=== PATIENT | female | born 1985 | race Caucasian/White ===

== ENCOUNTER 2017-06-05 05:39 | Inpatient (IN) | payer OTHER ==
[~2017-06-05] VITALS: Ht 172.7 cm; Wt 81.8 kg
[2017-06-05] MEDS ORDERED: OXYTOCIN 30U/ 0.9% NaCL 500ML 500 ML IV SCH (05:40)
[2017-06-05] MEDS ORDERED: LACTATED RINGERS 1,000 ML IV SCH ×3 (05:40→07:36)
[2017-06-05 05:54] VITALS: BP 112/73
[2017-06-05] MEDS ORDERED: METOCLOPRAMIDE 5 MG/ML, 2ML IV ONE (06:00)
[2017-06-05] MEDS ORDERED: LACTATED RINGERS 1,000 ML IVBOLUS ONE (06:00)
[2017-06-05] MEDS ORDERED: SODIUM CITRATE/CITRIC ACID 30 ML UDC PO ONE (06:00)
[2017-06-05] MEDS ORDERED: METOCLOPRAMIDE 5 MG/ML, 2ML ONE (06:04)
[2017-06-05] MEDS ORDERED: SODIUM CITRATE/CITRIC ACID 30 ML UDC ONE (06:04)
[2017-06-05] MEDS ORDERED: NEWBORN KIT ONE (06:04)
[2017-06-05 06:13] LABS: HEMATOCRIT 34.5 % (34.6-47.8); HEMOGLOBIN 11.5 g/dL (11.7-16.4); WHITE BLOOD COUNT 12.7 x10^3/uL (3.4-10)
[2017-06-05] MEDS ORDERED: PLEASE ENTER ALLERGIES MC SCH ×2 (06:30)
[2017-06-05] MEDS ORDERED: DIPH,PERTUSS(ACELL),TET VAC/PF NC IM-VACC ONE ×2 (07:15→07:30)
[2017-06-05] MEDS ORDERED: morphine SULFATE/PF 1 MG/ML, 10ML ONE (07:24)
[2017-06-05] MEDS: OXYTOCIN 30U/ 0.9% NaCL 500ML 500 ML IV SCH ×2 (07:36→17:36)
[2017-06-05] MEDS ORDERED: EPHEDRINE 50 MG/ML, 1ML ONE (07:41)
[2017-06-05] MEDS ORDERED: GLYCOPYRROLATE 0.2MG/1ML ONE (07:41)
[2017-06-05] MEDS ORDERED: ONDANSETRON 2MG/ML, 2ML ONE ×2 (07:41→10:12)
[2017-06-05] MEDS ORDERED: CEFAZOLIN 1,000 MG ONE (07:41)
[2017-06-05] MEDS ORDERED: PHENYLEPHRINE 10 MG/ML ONE (07:41)
[2017-06-05] MEDS ORDERED: RHOGAM FROM BLOOD BANK 1 NOTE EA IM/IV ONE (08:00)
[2017-06-05] MEDS ORDERED: MEPERIDINE/PF 25MG/0.5ML IM PRN (08:00)
[2017-06-05] MEDS ORDERED: ACETAMINOPHEN 325 MG TABLET PO PRN (08:00)
[2017-06-05] MEDS ORDERED: CARBOPROST TROMETHAMINE 250 MCG/ML, 1ML IM PRN (08:00)
[2017-06-05] MEDS ORDERED: morphine SULFATE 10 MG/ML, 1ML IVPush PRN (08:00)
[2017-06-05] MEDS ORDERED: OXYcodone/APAP 5/325MG TABLET PO PRN (08:00)
[2017-06-05] MEDS ORDERED: MISOPROSTOL 200 MCG TABLET PR PRN (08:00)
[2017-06-05] MEDS ORDERED: DIPH,PERTUSS(ACELL),TET VAC/PF NC IM-VACC PRN (08:00)
[2017-06-05] MEDS ORDERED: METHYLERGONOVINE 0.2 MG/ML IM PRN (08:00)
[2017-06-05] MEDS: PRENATAL VIT/IRON/FA 1 EACH TABLET PO SCH (09:00)
[2017-06-05] MEDS ORDERED: OXYTOCIN 30U/ 0.9% NaCL 500ML 500 ML ONE (09:13)
[2017-06-05] MEDS: ONDANSETRON 2MG/ML, 2ML IV PRN ×2 (10:19→11:28)
[2017-06-05] MEDS: LACTATED RINGERS 1,000 ML IV SCH ×2 (10:36→17:36)
[2017-06-05] MEDS ORDERED: DIPHENHYDRAMINE 50 MG/ML, 1ML ONE (11:10)
[2017-06-05 11:30] VITALS: BP 110/44
[2017-06-05] MEDS ORDERED: DIPHENHYDRAMINE 50 MG/ML, 1ML IVPush ONE (11:30)
[2017-06-05] MEDS: KETOROLAC 30 MG/1 ML IV SCH ×2 (13:13→19:06)
[2017-06-05 16:22] VITALS: BP 99/45
[2017-06-05 16:46] LABS: HEMATOCRIT 31.2 % (34.6-47.8); HEMOGLOBIN 10.2 g/dL (11.7-16.4); WHITE BLOOD COUNT 16.8 x10^3/uL (3.4-10)
[2017-06-05 19:05] VITALS: BP 95/51
[2017-06-06] VITALS: BP 100/58
[2017-06-06] MEDS: KETOROLAC 30 MG/1 ML IV SCH ×4 (01:19→19:15)
[2017-06-06] MEDS: OXYTOCIN 30U/ 0.9% NaCL 500ML 500 ML IV SCH ×3 (03:36→23:36)
[2017-06-06] MEDS: LACTATED RINGERS 1,000 ML IV SCH ×3 (03:36→23:36)
[2017-06-06 04:37] VITALS: BP 102/52
[2017-06-06] MEDS: OXYcodone/APAP 5/325MG TABLET PO PRN ×4 (05:56→21:23)
[2017-06-06 07:09] VITALS: BP 102/55
[2017-06-06] MEDS: DOCUSATE 100 MG CAPSULE PO PRN ×2 (07:19→19:55)
[2017-06-06] MEDS: PRENATAL VIT/IRON/FA 1 EACH TABLET PO SCH (07:19)
[2017-06-06 19:30] VITALS: BP 99/56
[2017-06-06] MEDS: IBUPROFEN 600 MG TABLET PO PRN (19:55)
[2017-06-07] MEDS: KETOROLAC 30 MG/1 ML IV SCH ×2 (01:15→07:15)
[2017-06-07] MEDS: IBUPROFEN 600 MG TABLET PO PRN ×4 (01:26→21:14)
[2017-06-07] MEDS: OXYcodone/APAP 5/325MG TABLET PO PRN ×6 (01:27→21:15)
[2017-06-07 07:10] VITALS: BP 100/55
[2017-06-07] MEDS: PRENATAL VIT/IRON/FA 1 EACH TABLET PO SCH (07:22)
[2017-06-07] MEDS: DOCUSATE 100 MG CAPSULE PO PRN ×2 (07:22→21:14)
[2017-06-07] MEDS ORDERED: IBUPROFEN 600 MG TABLET PO PRN (08:00)
[2017-06-07] MEDS ORDERED: IBUP-1222 PO (09:09)
[2017-06-07] MEDS ORDERED: OXYC-302 PO (09:09)
[2017-06-07] MEDS: LACTATED RINGERS 1,000 ML IV SCH (09:36)
[2017-06-07] MEDS: OXYTOCIN 30U/ 0.9% NaCL 500ML 500 ML IV SCH (09:36)
[2017-06-07 20:10] VITALS: BP 114/63
== END 2017-06-07 22:00 | disposition home or self-care (01) | DRG 766 ==
LOC: LDIP 05:39 → 2NW 11:26
PROVIDERS: ADMIT Obstetrics & Gynecology Maternal & Fetal Medicine; ATTEND Obstetrics & Gynecology Maternal & Fetal Medicine
PROC: 10D00Z1 Extraction of Products of Conception, Low, Open Approach (ICD-10-PCS; principal; 2017-06-06)
PROC: 30233S1 Transfusion of Nonautologous Globulin into Peripheral Vein, Percutaneous Approach (ICD-10-PCS; 2017-06-06)
DX: O34.211 Maternal care for low transverse scar from previous cesarean delivery (principal); Z37.0 Single live birth; Z3A.49 Greater than 42 weeks gestation of pregnancy
CPT/HCPCS: 36415; 85025; 85461; 86850; 86900; 90715; J0690; J1885; J2274; J2405; J2790; J3490; J1200; J2370; J2590; J2765; J7120